=== PATIENT | female | born 1935 | race Caucasian/White ===

== ENCOUNTER 2017-11-01 08:08 | Day surgery (SDC) | payer MEDICARE, MEDICAID ==
[2017-11-01] MEDS ORDERED: LIDOCAINE 1% INJ 50 ML MDV IJ ONE (09:10)
[2017-11-01] MEDS ORDERED: BUPIVACAINE 0.25% 75 MG/30 ML VIAL ONE (09:10)
[2017-11-01] MEDS ORDERED: methylPREDNISolone ACETATE 80 MG/ML VIAL ONE (09:12)
== END 2017-11-01 10:34 | disposition home or self-care (01) ==
LOC: DS 08:08
PROVIDERS: ATTEND Anesthesiology
DX: M47.816 Spondylosis without myelopathy or radiculopathy, lumbar region (principal); M53.3 Sacrococcygeal disorders, not elsewhere classified
CPT/HCPCS: 72020-TC; 82962-TC; J1040; J3490

== ENCOUNTER 2017-11-05 13:55 | Outpatient (CLI) | payer MEDICARE, MEDICAID | END 2017-11-05 23:59 | disposition home or self-care (01) | LOC: WOU 13:55 | PROVIDERS: ATTEND Surgery | PROC: 0JB90ZZ Excision of Buttock Subcutaneous Tissue and Fascia, Open Approach (ICD-10-PCS; principal; 2017-11-05) | DX: T21.05XA Burn of unspecified degree of buttock, initial encounter (principal); X16.XXXA Contact with hot heating appliances, radiators and pipes, initial encounter; Y92.89 Other specified places as the place of occurrence of the external cause; E11.9 Type 2 diabetes mellitus without complications; M48.061 Spinal stenosis, lumbar region without neurogenic claudication; M47.16 Other spondylosis with myelopathy, lumbar region; E66.9 Obesity, unspecified; Z68.34 Body mass index [BMI] 34.0-34.9, adult; Z95.1 Presence of aortocoronary bypass graft | CPT/HCPCS: 11042; A6402 ==

== ENCOUNTER 2017-11-19 14:00 | Outpatient (CLI) | payer MEDICARE, MEDICAID | END 2017-11-19 23:59 | disposition home health service (06) | LOC: WOU 14:00 | PROVIDERS: ATTEND Surgery | DX: T21.35XA Burn of third degree of buttock, initial encounter (principal); X19.XXXA Contact with other heat and hot substances, initial encounter | CPT/HCPCS: 16035; A6402 ×2 ==

== ENCOUNTER 2017-11-30 09:03 | Outpatient (CLI) | payer MEDICARE, MEDICAID | END 2017-11-30 23:59 | disposition home health service (06) | LOC: WOU 09:03 | PROVIDERS: ATTEND Surgery | DX: T21.35XA Burn of third degree of buttock, initial encounter (principal); X19.XXXA Contact with other heat and hot substances, initial encounter; Y93.89 Activity, other specified | CPT/HCPCS: 16035; A6402 ×2; 11042 ==

== ENCOUNTER 2017-12-17 14:00 | Outpatient (CLI) | payer MEDICARE, MEDICAID | END 2017-12-17 23:59 | disposition home health service (06) | LOC: WOU 14:00 | PROVIDERS: ATTEND Surgery | DX: T21.35XA Burn of third degree of buttock, initial encounter (principal); E11.9 Type 2 diabetes mellitus without complications; I10 Essential (primary) hypertension; Z95.1 Presence of aortocoronary bypass graft; M47.816 Spondylosis without myelopathy or radiculopathy, lumbar region; Z74.09 Other reduced mobility | CPT/HCPCS: 16035; A6209; A6402 ==

== ENCOUNTER 2017-12-31 13:48 | Outpatient (CLI) | payer MEDICARE, MEDICAID | END 2017-12-31 23:59 | disposition home or self-care (01) | LOC: WOU 13:48 | PROVIDERS: ATTEND Surgery | DX: T21.35XD Burn of third degree of buttock, subsequent encounter (principal); X19.XXXD Contact with other heat and hot substances, subsequent encounter; E11.9 Type 2 diabetes mellitus without complications; M48.00 Spinal stenosis, site unspecified; I10 Essential (primary) hypertension; E66.9 Obesity, unspecified; Z68.34 Body mass index [BMI] 34.0-34.9, adult; Z71.3 Dietary counseling and surveillance; I25.10 Atherosclerotic heart disease of native coronary artery without angina pectoris; Z95.1 Presence of aortocoronary bypass graft | CPT/HCPCS: A6402; G0463 ==

== ENCOUNTER 2018-05-22 22:45 | Emergency (ER) | payer MEDICARE, MEDICAID ==
[~2018-05-22] VITALS: Ht 157.5 cm; Wt 77.1 kg
--- NOTE | 2018-05-22 22:45 | NUR ---
BB DAUGHTER C/O LETHARGIC AND HYPOTENSIVE WITHIN 24 HOURS. HYPOTENSIVE BUT OTHERWISE VSS NO ACUTE DISTRESS NOTED AT THIS TIME. WILL CONTINUE TO MONITOR FOR ANY CHANGES DURING THE SHIFT.
--- NOTE | 2018-05-22 22:46 | NUR ---
ER MD NG AT BEDSIDE
[2018-05-22] MEDS ORDERED: IV NS 0.9% 1,000 ML BAG IV ONE (23:30)
[2018-05-23 00:05] LABS: BASOPHILS % (AUTO) 0.2 % (0.0-2.0); EOSINOPHILS % (AUTO) 3.2 % (0.0-6.0); HEMATOCRIT 40 % (33-45); HEMOGLOBIN 12.9 g/dL (11.5-14.8); LYMPHOCYTES # (AUTO) 1.7 /CMM (0.8-4.8); LYMPHOCYTES % (AUTO) 22.4 % (20.0-44.0); MEAN CORPUSCULAR HEMOGLOBIN 32 PG (26.0-33.0); MEAN CORPUSCULAR HGB CONC 33 g/dl (31.0-36.0); MEAN CORPUSCULAR VOLUME 97 fL (82-100); MONOCYTES # (AUTO) 0.6 /CMM (0.1-1.30); MONOCYTES % (AUTO) 7.2 % (2.0-12.0); NEUTROPHILS # (AUTO) 5.2 /CMM (1.8-8.9); PLATELET COUNT (AUTO) 212 /CMM (150-450); RDW COEFFICIENT OF VARIATION 14.6 (11.5-15.0); RED BLOOD CELL COUNT(AUTO) 4.08 MIL/uL (4.0-5.2); WHITE BLOOD COUNT (AUTO) 7.7 K/uL (4.3-11.0)
[2018-05-23 00:18] LABS: CALCIUM, SERUM 8.6 mg/dL (8.5-10.1); CARBON DIOXIDE 23 mmol/L (21-32); CHLORIDE 105 mmol/L (98-107); CREATININE 1.8 mg/dL (0.6-1.3); GLUCOSE 217 mg/dL (74-106); POTASSIUM 4.5 mmol/L (3.5-5.1); SODIUM SERUM 137 mmol/L (136-145); UREA NITROGEN, BLOOD 58 mg/dL (7-18)
[2018-05-23 00:22] LABS: INR 0.9 (0.87-1.13)
[2018-05-23 00:23] LABS: ALANINE AMINOTRANSFERASE 10 U/L (12-78); ALBUMIN 3.6 g/dL (3.4-5.0); ALKALINE PHOSPHATASE 123 U/L (46-116); ASPARTATE AMINOTRANSFERASE 19 U/L (15-37); BILIRUBIN,TOTAL 0.2 mg/dL (0.2-1.0)
[2018-05-23 00:26] LABS: TROPONIN I < 0.017 ng/mL (0.00-0.056)
[2018-05-23 00:50] LABS: APPEARANCE,URINE CLEAR (CLEAR); BILIRUBIN,URINE NEGATIVE (NEGATIVE); BLOOD, URINE NEGATIVE Ery/uL (NEGATIVE); COLOR,URINE YELLOW (YELLOW); KETONES,URINE NEGATIVE (NEGATIVE); LEUKOCYTE ESTERASE ,URINE NEGATIVE (NEGATIVE); NITRITE, URINE NEGATIVE (NEGATIVE); PH,URINE 6.5 (5.0-8.0); PROTEIN,URINE NEGATIVE (NEGATIVE); UGLUCOSE 3+ mg/dL (NEGATIVE); UROBILINOGEN,URINE 0.2 EU/dL (0.2)
[2018-05-23 01:01] LABS: RBC,URINE 0-2 /HPF (0-2)
[2018-05-23 01:02] LABS: BACTERIA,URINE Few /HPF (None Seen); SQUAMOUS EPITHELIAL CELL,UR Few /HPF (None Seen)
[2018-05-23 01:39] VITALS: BP 119/61
== END 2018-05-23 01:40 | disposition home or self-care (01) ==
LOC: ER 22:47
DX: R53.1 Weakness (principal); E86.0 Dehydration; N39.0 Urinary tract infection, site not specified; I10 Essential (primary) hypertension; E11.9 Type 2 diabetes mellitus without complications; M48.00 Spinal stenosis, site unspecified; Z98.890 Other specified postprocedural states
CPT/HCPCS: 36415; 80048; 80076; 81001; 82962; 83605; 84484; 85025; 85730; 87040 ×2; 87086; 93005; 99285; A4606; J7030; 81000-TC; Z7610

== ENCOUNTER 2018-06-12 11:12 | Outpatient (CLI) | payer MEDICARE, MEDICAID | END 2018-06-12 23:59 | disposition home or self-care (01) | LOC: WOU 11:12 | PROVIDERS: ATTEND Surgery Vascular Surgery | DX: M79.89 Other specified soft tissue disorders (principal); M71.21 Synovial cyst of popliteal space [Baker], right knee | CPT/HCPCS: 93970-TC; Z7610 ==

== ENCOUNTER 2022-07-19 08:22 | Outpatient (CLI) | payer MEDICARE, OTHER ==
[2022-07-19 08:43] LABS: BASOPHILS % (AUTO) 0.3 % (0.0-2.0); EOSINOPHILS % (AUTO) 3.2 % (0.0-6.0); HEMATOCRIT 38 % (33-45); HEMOGLOBIN 12.4 g/dL (11.5-14.8); LYMPHOCYTES # (AUTO) 1.1 K/uL (0.8-4.8); LYMPHOCYTES % (AUTO) 18.7 % (20.0-44.0); MEAN CORPUSCULAR HGB CONC 33 g/dl (31.0-36.0); MEAN CORPUSCULAR VOLUME 93 fL (82-100); MONOCYTES # (AUTO) 0.5 K/uL (0.1-1.30); NEUTROPHILS # (AUTO) 4.1 K/uL (1.8-8.9); NEUTROPHILS % (AUTO) 68.8 % (43.0-81.0); PLATELET COUNT (AUTO) 186 K/uL (150-450); RED BLOOD CELL COUNT(AUTO) 4.06 MIL/uL (4.0-5.2); WHITE BLOOD COUNT (AUTO) 5.9 K/uL (4.3-11.0)
[2022-07-19 09:03] LABS: ALANINE AMINOTRANSFERASE 11 U/L (12-78); ALBUMIN 3.5 g/dL (3.4-5.0); ALKALINE PHOSPHATASE 127 U/L (46-116); ASPARTATE AMINOTRANSFERASE 19 U/L (15-37); BILIRUBIN,TOTAL 0.8 mg/dL (0.2-1.0); CALCIUM, SERUM 9.2 mg/dL (8.5-10.1); CARBON DIOXIDE 29 mmol/L (21-32); CHLORIDE 108 mmol/L (98-107); CREATININE 1.1 mg/dL (0.6-1.3); GLUCOSE 154 mg/dL (74-106); POTASSIUM 3.3 mmol/L (3.5-5.1); SODIUM SERUM 141 mmol/L (136-145); TOTAL PROTEIN, SERUM 6.7 g/dL (6.4-8.2); UREA NITROGEN, BLOOD 21 mg/dL (7-18)
[2022-07-20] MEDS ORDERED: GABA-532 PO (17:49)
[2022-07-20] MEDS ORDERED: ATOR20TA PO (17:49)
[2022-07-20] MEDS ORDERED: LOSA50TA39 PO (17:49)
[2022-07-20] MEDS ORDERED: MYRBETRIQ PO (17:49)
[2022-07-20] MEDS ORDERED: ASPI-1420 PO (17:49)
[2022-07-20] MEDS ORDERED: SENN-261 PO (17:49)
[2022-07-20] MEDS ORDERED: CIPR500T5 PO (17:49)
[2022-07-20] MEDS ORDERED: AMLO-212 PO (17:49)
[2022-07-20] MEDS ORDERED: MAGN400T26 PO (17:49)
[2022-07-20] MEDS ORDERED: CARB1TAB39 PO (17:49)
[2022-07-20] MEDS ORDERED: SITA50TA PO (17:49)
[2022-07-20] MEDS ORDERED: AMAN100C16 PO (18:35)
[2022-07-20] MEDS ORDERED: CALC-15 PO (18:35)
[2022-07-20] MEDS ORDERED: PRAM0.5T11 PO (18:35)
[2022-07-24] MEDS ORDERED: CARV6.252 PO (11:39)
[2022-07-24] MEDS ORDERED: FLUC100T8 PO (11:39)
[2022-07-24] MEDS ORDERED: PIPE3.379 IV (11:39)
[2022-07-24] MEDS ORDERED: Quetiapine Fumarate PO (11:39)
== END 2022-07-19 23:59 | disposition home or self-care (01) ==
LOC: LAB 08:22
PROVIDERS: ATTEND Family Medicine
DX: R44.3 Hallucinations, unspecified (principal)
CPT/HCPCS: 36415; 80053-TC; 85025-TC

== ENCOUNTER 2022-07-20 16:39 | Inpatient (IN) | payer MEDICARE, OTHER ==
[~2022-07-20] VITALS: Ht 157.5 cm; Wt 63.5 kg
[2022-07-20] MEDS ORDERED: CIPROFLOXACIN IV RTU 400 MG in PREMIX 1 EA IV SCH (17:30)
[2022-07-20] MEDS ORDERED: IV NS 0.9% 1,000 ML BAG IV ONE (17:30)
[2022-07-20] MEDS ORDERED: AMLO-212 PO (17:49)
[2022-07-20] MEDS ORDERED: SITA50TA PO (17:49)
[2022-07-20] MEDS ORDERED: ATOR20TA PO (17:49)
[2022-07-20] MEDS ORDERED: ASPI-1420 PO (17:49)
[2022-07-20] MEDS ORDERED: CARB1TAB39 PO (17:49)
[2022-07-20] MEDS ORDERED: GABA-532 PO (17:49)
[2022-07-20] MEDS ORDERED: MAGN400T26 PO (17:49)
[2022-07-20] MEDS ORDERED: CIPR500T5 PO (17:49)
[2022-07-20] MEDS ORDERED: LOSA50TA39 PO (17:49)
[2022-07-20] MEDS ORDERED: MYRBETRIQ PO (17:49)
[2022-07-20] MEDS ORDERED: SENN-261 PO (17:49)
--- NOTE | 2022-07-20 18:08 | NUR ---
PT TAKEN TO RADIOLOGY FOR CT
[2022-07-20 18:18] LABS: BILIRUBIN,URINE NEGATIVE (NEGATIVE); COLOR,URINE YELLOW (YELLOW); LEUKOCYTE ESTERASE ,URINE SMALL (NEGATIVE); NITRITE, URINE NEGATIVE (NEGATIVE); PROTEIN,URINE TRACE mg/dl (NEGATIVE); UGLUCOSE NEGATIVE (NEGATIVE); UROBILINOGEN,URINE 0.2 EU/dL (0.2)
[2022-07-20 18:29] LABS: BACTERIA,URINE 1+ /HPF (None Seen); RBC,URINE 0-2 /HPF (0-2); SQUAMOUS EPITHELIAL CELL,UR Few /HPF (None Seen); WBC,URINE TOO NUMEROUS TO COUN /HPF (0-3); YEAST,URINE Hyphal filaments /HPF (None Seen)
[2022-07-20] MEDS ORDERED: PRAM0.5T11 PO (18:35)
[2022-07-20] MEDS ORDERED: CALC-15 PO (18:35)
[2022-07-20] MEDS ORDERED: AMAN100C16 PO (18:35)
--- NOTE | 2022-07-20 19:09 | NUR ---
BIBA Daughter from Home "GLF couple days ago. Today seems confused". HAS HAD MULTIPLE GLFS OVER LAST FEW DAYS PER DAUGHTER WITH BRUISING TO R EYE. PER DAUGHTER HAS BEEN ON MULTIPLE ABX FOR UTI WITHOUT IMPROVEMENT. ON MONITOR AND V/S WNL. DAUGHTER AT BEDSIDE.
--- NOTE | 2022-07-20 19:10 | NUR ---
COVID SWAB DONE AND SENT
--- NOTE | 2022-07-20 19:15 | NUR ---
20G IV ESTABLISHED AT [facility]. SALINE LOCKED.
--- NOTE | 2022-07-20 19:15 | NUR ---
Shola gonzalez in ED - 07/20/22 at 2143 by KRYSTENBBMARIE 30G IV ESTABLISHED AT [facility]. SALINE LOCKED.
[2022-07-20] MEDS ORDERED: CIPROFLOXACIN IV RTU 200 ML IV ONE (19:17)
[2022-07-20 20:07] LABS: CALCIUM, SERUM 9.5 mg/dL (8.5-10.1); CREATININE 1.1 mg/dL (0.6-1.3); POTASSIUM 3.3 mmol/L (3.5-5.1)
[2022-07-20 20:27] LABS: ALBUMIN 4.1 g/dL (3.4-5.0); BILIRUBIN,DIRECT 0.3 mg/dL (0.0-0.2); TOTAL PROTEIN, SERUM 7.7 g/dL (6.4-8.2)
[2022-07-20 20:39] LABS: BASOPHILS % (AUTO) 0.3 % (0.0-2.0); EOSINOPHILS % (AUTO) 0.9 % (0.0-6.0); HEMATOCRIT 40 % (33-45); HEMOGLOBIN 13.4 g/dL (11.5-14.8); LYMPHOCYTES # (AUTO) 0.7 K/uL (0.8-4.8); LYMPHOCYTES % (AUTO) 8.8 % (20.0-44.0); MEAN CORPUSCULAR HGB CONC 33 g/dl (31.0-36.0); MEAN CORPUSCULAR VOLUME 93 fL (82-100); MONOCYTES # (AUTO) 0.6 K/uL (0.1-1.30); MONOCYTES % (AUTO) 6.7 % (2.0-12.0); NEUTROPHILS # (AUTO) 6.9 K/uL (1.8-8.9); NEUTROPHILS % (AUTO) 83.3 % (43.0-81.0); PLATELET COUNT (AUTO) 213 K/uL (150-450); RED BLOOD CELL COUNT(AUTO) 4.33 MIL/uL (4.0-5.2); WHITE BLOOD COUNT (AUTO) 8.3 K/uL (4.3-11.0)
[2022-07-20] MEDS ORDERED: Z GUARD REMEDY 4 OZ OINT TP PRN (21:00)
[2022-07-20] MEDS ORDERED: ONDANSETRON HCL/PF 4 MG/2 ML VIAL IVP PRN (21:00)
[2022-07-20] MEDS ORDERED: LOSARTAN POTASSIUM 50 MG TABLET PO PRN (21:00)
[2022-07-20] MEDS ORDERED: MAG HYDROX/AL HYDROX/SIMETH 30 ML UDC PO PRN (21:00)
--- NOTE | 2022-07-20 21:39 | NUR ---
BED 310-1
--- NOTE | 2022-07-20 22:08 | NUR ---
REPORT GIVEN TO ADRIAN
--- NOTE | 2022-07-20 22:24 | NUR ---
PT TRANSPORTED TO ROOM 306-2 VIA [facility] IN STABLE CONDITION
[2022-07-20 22:25] VITALS: BP 149/95
--- NOTE | 2022-07-20 22:30 | NUR ---
MS OCCUPATIONAL THERAPY SUPERVISOR NOTES RECEIVED PATIENT FROM ER VIA [facility] AT 2220 UNDER THE CARE OF SILVESTRE MENDEZ NP WITH DX OF UTI, FAILED OUTPATIENT TX. ACCOMPANIED BY DAUGHTER. PATIENT IS A/O X1 AND CONFUSED, HER BASELINE IS A/O X4. GERMAN SPEAKING. BREATHING EVEN AND NON-LABORED ON ROOM AIR. NOT IN APPARENT DISTRESS. NO PAIN OR DISCOMFORT NOTED. GENERALIZED TREMORS D/T PARKINSON'S. HAS RIGHT ANTECUBITAL IV ACCESS #20G AND SALINE LOCKED. NO S/S OF INFILTRATION NOTED. HAS INDWELLING STAFFORD CATHETER DRAINING YELLOW CLEAR URINE TO BAG BY GRAVITY. PER DAUGHTER, PATIENT WAS AMBULATORY WITH WALKER. MULTIPLE BRUISES NOTED D/T FALLS. ALL BELONGINGS ACCOUNTED FOR. ORIENTED DAUGHTER TO ROOM AND UNIT. SAFETY MEASURES IN PLACE: BED LOW AND LOCKED, SIDE RAILS UP X2, CALL LIGHT WITHIN REACH. INITIATED POC.
[2022-07-20] MEDS: ATORVASTATIN 10 MG TABLET PO SCH (22:52)
[2022-07-20] MEDS: ZOLPIDEM TARTRATE 5 MG TABLET PO PRN (22:57)
[2022-07-20] MEDS: IV NS 0.9% 1,000 ML IV PRN (23:00)
--- NOTE | 2022-07-20 23:00 | NUR ---
MS RN NOTES DAUGHTER REQUESTED TO GIVE PATIENT AMBIEN SINCE SHE HAS NOT SLEPT FOR 3 NIGHTS. ADMINISTERED PRN AMBIEN. TOLERATED WELL. WILL CONTINUE TO MONITOR.
[2022-07-20] MEDS ORDERED: PIPERACILLIN /TAZOBACTAM 2.25 G VIAL IV ONE (23:06)
[2022-07-20] MEDS: ZOSYN IVPB 2.25 G in IV D5W 50ml IV SCH (23:21)
[2022-07-20] MEDS ORDERED: POTASSIUM CHLORIDE 10 MEQ TABLET.SA PO ONE (23:30)
[2022-07-21] MEDS ORDERED: PIPERACILLIN /TAZOBACTAM 2.25 G VIAL IV ONE (05:13)
[2022-07-21] MEDS: ZOSYN IVPB 2.25 G in IV D5W 50ml IV SCH (05:28)
[2022-07-21 05:57] LABS: BASOPHILS % (AUTO) 0.2 % (0.0-2.0); EOSINOPHILS % (AUTO) 3.2 % (0.0-6.0); HEMATOCRIT 34 % (33-45); HEMOGLOBIN 11.5 g/dL (11.5-14.8); LYMPHOCYTES # (AUTO) 1.4 K/uL (0.8-4.8); LYMPHOCYTES % (AUTO) 21.2 % (20.0-44.0); MEAN CORPUSCULAR HGB CONC 34 g/dl (31.0-36.0); MEAN CORPUSCULAR VOLUME 93 fL (82-100); MONOCYTES # (AUTO) 0.7 K/uL (0.1-1.30); MONOCYTES % (AUTO) 9.9 % (2.0-12.0); NEUTROPHILS # (AUTO) 4.3 K/uL (1.8-8.9); NEUTROPHILS % (AUTO) 65.5 % (43.0-81.0); PLATELET COUNT (AUTO) 179 K/uL (150-450); WHITE BLOOD COUNT (AUTO) 6.6 K/uL (4.3-11.0)
--- NOTE | 2022-07-21 06:38 | NUR ---
MS RN CLOSING NOTES PATIENT LYING IN BED ASLEEP, EASY TO AROUSE. A/O X1, STILL CONFUSED. NO SOB OR NOTED, TOLERATING ROOM AIR WELL. NO ACUTE DISTRESS NOTED. NO S/S OF PAIN OR DISCOMFORT. AFEBRILE. HAS RIGHT ANTECUBITAL IV ACCESS #20G WITH NS RUNNING AT 90 ML/HR. INTACT, PATENT AND FLUSHING. YELLOW CLEAR URINE OUTPUT OF 350 ML. SKIN CARE RENDERED. ALL DUE MEDS GIVEN AND NEEDS ATTENDED. SAFETY MEASURES MAINTAINED. WILL ENDORSE TO NEXT SHIFT FOR MARTY.
--- NOTE | 2022-07-21 07:32 | NUR ---
MS RN OPENING NOTES RECEIVED PATIENT IN BED ASLEEP, EASY TO AROUSE. A/O X1, ETHIOPIAN SPEAKING. STILL CONFUSED. ON ROOM AIR, NO SIGNS OF SOB OR RESPIRATORY DISTRESS NOTED. NO S/S OF PAIN OR DISCOMFORT. HAS IV ACCESS RAC 20G WITH NS RUNNING AT 90 ML/HR. INTACT, PATENT AND FLUSHING. HAS STAFFORD CATH WITH YELLOW CLEAR URINE OUTPUT. SAFETY MEASURES MAINTAINED: CALL LIGHT WITHIN REACH, SIDE RAILS UP X3, BED LOCKED IN LOWEST POSITION. WILL CONTINUE TO MONITOR.
[2022-07-21 08:10] LABS: CALCIUM, SERUM 8.4 mg/dL (8.5-10.1); CREATININE 0.8 mg/dL (0.6-1.3); MAGNESIUM 1.9 mg/dL (1.8-2.4); PHOSPHORUS 2.7 mg/dL (2.5-4.9); POTASSIUM 3.3 mmol/L (3.5-5.1)
[2022-07-21] MEDS: MAGNESIUM OXIDE 400 MG TABLET PO SCH (08:18)
[2022-07-21] MEDS: AMANTADINE HCL 100 MG CAPSULE PO SCH (08:18)
[2022-07-21] MEDS: CALCIUM CARB 600MG /VIT D 1 EACH TABLET PO SCH (08:18)
[2022-07-21] MEDS: ASPIRIN EC 81 MG TABLET.DR PO SCH (08:18)
[2022-07-21] MEDS: LINAGLIPTIN 5 MG TABLET PO SCH (08:18)
[2022-07-21] MEDS: SENNOSIDES 8.6 MG TABLET PO SCH (08:18)
[2022-07-21] MEDS: GABAPENTIN 100 MG CAPSULE PO SCH ×2 (08:18→16:30)
--- NOTE | 2022-07-21 08:56 | NUR ---
WOUND CARE CONSULT: PT PRESENTS WITH MULTIPLE AREAS OF SKIN DISCOLORATION INCLUDING FACE AND EXTREMITIES WELL DRY ABRASION TO LEFT ELBOW, PRESENT ON ADMISSION. RECOMMENDATIONS MADE FOR SKIN PROTECTION. DISCUSSED WITH NURSING STAFF. PT NOTED TO HAVE FRAGILE SKIN. Ashley Ma IN AGREEMENT WITH PLAN OF CARE. STAFFORD CATH NOTED.
[2022-07-21] MEDS ORDERED: Medication Not On Formulary EA ([Myrbetriq] 50 MG) PO SCH (09:00)
[2022-07-21] MEDS ORDERED: AMLODIPINE BESYLATE 5 MG TABLET PO SCH (09:00)
[2022-07-21] MEDS ORDERED: PRAMIPEXOLE DI HCL PO SCH (09:00)
[2022-07-21 09:38] LABS: CHOLESTEROL 114 mg/dL (<200); HDL CHOLESTEROL 71 mg/dL (40-60); LDL 34 mg/dL (0-99); TRIGLYCERIDES 61 mg/dL (30-150)
[2022-07-21] MEDS: CARBIDOPA/LEVA CR 25/100MG 1 TAB.SA PO SCH ×3 (09:55→16:30)
[2022-07-21] MEDS: POTASSIUM CHLORIDE 20 MEQ TAB.PRT.SR PO SCH ×2 (10:37→12:13)
[2022-07-21] MEDS: PIPERACILLIN /TAZOBACTAM 3.375 G in IV D5W 50 ML IV SCH ×2 (11:03→17:26)
[2022-07-21] MEDS: FLUCONAZOLE (100 MG) 100 MG TABLET PO SCH (12:13)
[2022-07-21] MEDS: IV NS 0.9% 1,000 ML IV PRN (13:21)
[2022-07-21] MEDS: ACETAMINOPHEN 325 MG TABLET PO PRN (14:46)
--- NOTE | 2022-07-21 14:49 | NUR ---
RN NOTES PT C/O MILD CHEST PAIN/DISCOMFORTS AFTER PHYSICAL THERAPY, PRN TYLENOL 650 MG PO ADMINISTERED AT 1446. WILL CONTINUE TO MONITOR PT.
[2022-07-21] MEDS: PRAMIPEXOLE DI-HCL 0.25 MG TABLET PO SCH (16:31)
--- NOTE | 2022-07-21 16:49 | NUR ---
RN NOTES PT'S DAUGHTER AT BEDSIDE AND VERBALIZED THAT PT HAS CHRONIC CONSTIPATION AND HASN'T DONE BOWEL MOVEMENT FOR A WEEK NOW. DR WEATHERS MADE AWARE WITH ORDER TO ADMINISTER BISACODYL 10MG SUPPOSITORY PRN.
[2022-07-21] MEDS ORDERED: BISACODYL SUPP (10 MG) 10 MG/SUPP.RECT SUPP.RECT RC PRN (17:00)
--- NOTE | 2022-07-21 18:23 | NUR ---
RN NOTES PT HAD ONE BOWEL MOVEMENT X1 AFTER GIVING BISACODYL 10MG SUPPOSITORY.
--- NOTE | 2022-07-21 18:37 | NUR ---
MS RN CLOSING NOTES PATIENT IN BED AWAKE AND WATCHING TV AT THIS TIME. HOB ELEVATED. DAUGHTER AT BEDSIDE. A/O X 2-3, NIGERIAN SPEAKING AND UNDERSTANDS MINIMAL LAO. ON ROOM AIR, TOLERATING WELL, NO SOB OR ACUTE RESPIRATORY DISTRESS NOTED. IV ACCESS ON LFA #22G INTACT WITH IVF OF NS RUNNING AT 90 ML/HR, NO /S OF INFILTRATION AT SITE NOTED. STAFFORD CATH IN PLACE AND ACTIVELY DRAINING SLIGHTLY CLOUDY YELLOW CLEAR URINE OUTPUT, STAFFORD CARE DONE. PT TURNED AND REPOSITIONED Q2HRS AND PRN. ALL NEEDS AND CARE PROVIDED WELL. SAFETY MEASURES MAINTAINED: CALL LIGHT WITHIN REACH, BED ALARM ON, SIDE RAILS UP X3, BED LOCKED IN LOWEST POSITION. WILL ENDORSE MARTY TO WORK ORDER DETAILER NURSE.
--- NOTE | 2022-07-21 19:30 | NUR ---
MS RN OPENING NOTES RECEIVED PATIENT LYING IN BED AWAKE. A/O X 2-3, KUWAITI SPEAKING AND UNDERSTANDS MINIMAL PERSIAN. BREATHING EVEN AND NON-LABORED ON ROOM AIR. NOT IN APPARENT DISTRESS. DENIES PAIN AT THIS TIME. HAS LEFT FOREARM IV ACCESS #22G WITH NS RUNNING AT 90 ML/HR. NO S/S OF INFILTRATION NOTED. HAS INDWELLING STAFFORD CATHETER DRAINING CLEAR YELLOW URINE TO BAG BY GRAVITY. SAFETY PRECAUTIONS IN PLACE: BED LOW AND LOCKED, SIDE RAILS UP X2, CALL LIGHT WITHIN REACH. WILL CONTINUE POC.
[2022-07-21 20:00] VITALS: BP 111/54
[2022-07-21] MEDS: MAGNESIUM HYDROXIDE 30 ML UDC PO PRN (21:44)
[2022-07-21] MEDS: ATORVASTATIN 10 MG TABLET PO SCH (21:44)
--- NOTE | 2022-07-21 21:50 | NUR ---
MS RN NOTES DAUGHTER REQUESTED TO GIVE PRN MOM TO PATIENT SINCE SHE HAS CHRONIC CONSTIPATION.
[2022-07-22] MEDS: PIPERACILLIN /TAZOBACTAM 3.375 G in IV D5W 50 ML IV SCH ×2 (00:28→06:03)
[2022-07-22] MEDS: IV NS 0.9% 1,000 ML IV PRN (02:26)
[2022-07-22 06:34] LABS: BASOPHILS % (AUTO) 0.2 % (0.0-2.0); EOSINOPHILS % (AUTO) 4.9 % (0.0-6.0); HEMATOCRIT 39 % (33-45); LYMPHOCYTES # (AUTO) 1.6 K/uL (0.8-4.8); LYMPHOCYTES % (AUTO) 21.8 % (20.0-44.0); MEAN CORPUSCULAR HGB CONC 33 g/dl (31.0-36.0); MEAN CORPUSCULAR VOLUME 93 fL (82-100); MONOCYTES # (AUTO) 0.6 K/uL (0.1-1.30); MONOCYTES % (AUTO) 8.2 % (2.0-12.0); NEUTROPHILS # (AUTO) 4.6 K/uL (1.8-8.9); NEUTROPHILS % (AUTO) 64.9 % (43.0-81.0); PLATELET COUNT (AUTO) 189 K/uL (150-450); WHITE BLOOD COUNT (AUTO) 7.2 K/uL (4.3-11.0)
[2022-07-22 06:46] LABS: CALCIUM, SERUM 8.7 mg/dL (8.5-10.1); CARBON DIOXIDE 24 mmol/L (21-32); CHLORIDE 108 mmol/L (98-107); CREATININE 0.8 mg/dL (0.6-1.3); GLUCOSE 94 mg/dL (74-106); MAGNESIUM 1.6 mg/dL (1.8-2.4); PHOSPHORUS 2.6 mg/dL (2.5-4.9); POTASSIUM 3.6 mmol/L (3.5-5.1); SODIUM SERUM 142 mmol/L (136-145); UREA NITROGEN, BLOOD 9 mg/dL (7-18)
[2022-07-22 07:00] VITALS: BP 130/54
--- NOTE | 2022-07-22 07:01 | NUR ---
MS RN CLOSING NOTES PATIENT LYING IN BED SLEEPING INTERMITTENTLY, EASY TO AROUSE. A/O X 2-3, ABLE TO VERBALIZE NEEDS. NO SOB OR NOTED, TOLERATING ROOM AIR WELL. NO ACUTE DISTRESS NOTED. NO PAIN OR DISCOMFORT NOTED. AFEBRILE. HAS LEFT FOREARM IV ACCESS #22G WITH NS RUNNING AT 90 ML/HR. INTACT, PATENT AND FLUSHING. ALL DUE MEDS GIVEN AND NEEDS ATTENDED. SAFETY PRECAUTIONS MAINTAINED. WILL ENDORSE TO NEXT SHIFT FOR MARTY.
--- NOTE | 2022-07-22 07:25 | NUR ---
ms rn received on bed, awake,alert,oriented x3 not in any form of distress, respirations even and unlabored,no sob noted,s/p fall right eye bruise noted, denies pain at this time, will monitor patient.
[2022-07-22] MEDS: LINAGLIPTIN 5 MG TABLET PO SCH (09:00)
--- NOTE | 2022-07-22 09:50 | NUR ---
ms arana breakfast served,due meds given,tolerated well.
[2022-07-22] MEDS: SENNOSIDES 8.6 MG TABLET PO SCH (09:51)
[2022-07-22] MEDS: FLUCONAZOLE (100 MG) 100 MG TABLET PO SCH (09:51)
[2022-07-22] MEDS: CALCIUM CARB 600MG /VIT D 1 EACH TABLET PO SCH (09:51)
[2022-07-22] MEDS: ASPIRIN EC 81 MG TABLET.DR PO SCH (09:51)
[2022-07-22] MEDS: MAGNESIUM OXIDE 400 MG TABLET PO SCH (09:51)
[2022-07-22] MEDS: GABAPENTIN 100 MG CAPSULE PO SCH ×2 (09:51→16:56)
[2022-07-22] MEDS: PRAMIPEXOLE DI-HCL 0.25 MG TABLET PO SCH ×2 (09:52→16:56)
[2022-07-22] MEDS: CARBIDOPA/LEVA CR 25/100MG 1 TAB.SA PO SCH ×3 (09:53→16:55)
[2022-07-22] MEDS: AMANTADINE HCL 100 MG CAPSULE PO SCH (09:55)
[2022-07-22] MEDS: CARVEDILOL 6.25 MG TABLET PO SCH ×2 (10:00→21:00)
[2022-07-22] MEDS: LOSARTAN POTASSIUM 50 MG TABLET PO SCH ×2 (10:00→21:00)
[2022-07-22] MEDS: PIPERACILLIN /TAZOBACTAM 3.375 G in IV D5W 100 ML IV SCH ×2 (12:57→21:20)
[2022-07-22] MEDS: Magnesium 1GM/D5W 100ML PREMIX 100 ML IV SCH ×2 (12:57→14:12)
[2022-07-22] MEDS: ACETAMINOPHEN 325 MG TABLET PO PRN (13:10)
[2022-07-22 20:00] VITALS: BP 103/43
[2022-07-22] MEDS: ATORVASTATIN 10 MG TABLET PO SCH (21:29)
[2022-07-22] MEDS: ZOLPIDEM TARTRATE 5 MG TABLET PO PRN (21:30)
--- NOTE | 2022-07-22 21:33 | NUR ---
UNABLE TO SLEEP Patient in bed, inability to sleep. Made comfortable in bed, provided warm blanket. Given Ambien, will monitor hours of sleep. Fall precaution maintained.
[2022-07-22] MEDS: MAGNESIUM HYDROXIDE 30 ML UDC PO PRN (22:20)
--- NOTE | 2022-07-22 22:24 | NUR ---
FAMILY CONCERN Records showed patient had BM today, per Sosseh/daughter- patient taking senokot 4 tabs. at home. Given MOM per daughter request.
[2022-07-23] MEDS: PIPERACILLIN /TAZOBACTAM 3.375 G in IV D5W 100 ML IV SCH ×3 (05:45→21:19)
--- NOTE | 2022-07-23 06:14 | NUR ---
END OF SHIFT REPORT Patient in bed, Alert Oriented x1 to self only. Patient confused, trying to get out from bed unassisted, frequent Orientation. Stable on RA, Oxygen sat 93%. Inserted new IV line in Right wrist, on IV abx. Afebrile throughout shift. 5 Hours sleep with Ambien. Santiago cath draining, good urine output 800 ml. No BM during the shift. Fall precaution maintained. Will endorse to oncoming RN.
[2022-07-23 07:00] VITALS: BP 150/63
--- NOTE | 2022-07-23 07:37 | NUR ---
MS RN OPENING NOTES RECEIVED PATIENT AWAKE IN BED. A/O X 1, CONFUSED. REORIENT THE PATIENT .ABLE TO VERBALIZE NEEDS IN FILIPINO LANGUAGE. NO SOB NOTED, TOLERATING ROOM AIR WELL. NO ACUTE DISTRESS NOTED. NO PAIN OR DISCOMFORT NOTED. AFEBRILE. NOTED WITH BRUISES ON THE RIGHT EYE AND RIGHT FOREHEAD, BOTH POSTERIOR HANDS. IV ACCESS RIGHT WRIST G # 24 INTACT, PATENT AND FLUSHING WELL. ALL SAFETY PRECAUTIONS IN PLACE. BED ALARM ON. BED LOCKED IN THE LOWEST POSITION. CALL LIGHT AND TABLE IN EASY REACH. SIDE RAILS UP TIMES 2. WILL CONTINUE TO MONITOR.
[2022-07-23] MEDS: SENNOSIDES 8.6 MG TABLET PO SCH (08:24)
[2022-07-23] MEDS: LINAGLIPTIN 5 MG TABLET PO SCH (08:24)
[2022-07-23] MEDS: AMANTADINE HCL 100 MG CAPSULE PO SCH (08:25)
[2022-07-23] MEDS: GABAPENTIN 100 MG CAPSULE PO SCH ×2 (08:25→16:02)
[2022-07-23] MEDS: MAGNESIUM OXIDE 400 MG TABLET PO SCH (08:25)
[2022-07-23] MEDS: ASPIRIN EC 81 MG TABLET.DR PO SCH (08:25)
[2022-07-23] MEDS: FLUCONAZOLE (100 MG) 100 MG TABLET PO SCH (08:26)
[2022-07-23] MEDS: CARBIDOPA/LEVA CR 25/100MG 1 TAB.SA PO SCH ×3 (08:26→16:32)
[2022-07-23] MEDS: CALCIUM CARB 600MG /VIT D 1 EACH TABLET PO SCH (08:27)
[2022-07-23] MEDS: LOSARTAN POTASSIUM 50 MG TABLET PO SCH (08:27)
[2022-07-23] MEDS: CARVEDILOL 6.25 MG TABLET PO SCH ×2 (08:28→21:19)
[2022-07-23] MEDS: PRAMIPEXOLE DI-HCL 0.25 MG TABLET PO SCH ×2 (08:30→16:32)
[2022-07-23] MEDS: ACETAMINOPHEN 325 MG TABLET PO PRN ×2 (09:52→19:57)
[2022-07-23] MEDS: VALSARTAN 80 MG TABLET PO SCH (10:30)
--- NOTE | 2022-07-23 11:47 | NUR ---
RN NOTES HELD DIOVAN 160 MG FOR MZ=226/50, P=74 PER MEDICATION PARAMETERS.
--- NOTE | 2022-07-23 12:23 | NUR ---
RN NOTES DC THE ORDER OF AMBIEN [address] INDIA WEATHERS ORDER AT 1220 PM.
[2022-07-23] MEDS ORDERED: POLYETHYLENE GLYCOL 3350 17 GM POWD.PACK PO PRN (12:30)
[2022-07-23 16:00] VITALS: BP 109/47
[2022-07-23] MEDS ORDERED: QUETIAPINE FUMARATE 25 MG TABLET PO PRN (17:30)
[2022-07-23 20:00] VITALS: BP 128/52
[2022-07-23] MEDS: ATORVASTATIN 10 MG TABLET PO SCH (21:18)
[2022-07-24] MEDS: PIPERACILLIN /TAZOBACTAM 3.375 G in IV D5W 100 ML IV SCH ×2 (04:21→12:14)
--- NOTE | 2022-07-24 06:53 | NUR ---
MS RN CLOSING NOTES PATIENT AWAKE IN BED. A/O X 1, CONFUSED. REORIENT THE PATIENT .ABLE TO VERBALIZE NEEDS IN MOHAWK LANGUAGE. NO SOB NOTED, TOLERATING ROOM AIR WELL. NO ACUTE DISTRESS NOTED. NO PAIN OR DISCOMFORT NOTED. AFEBRILE. NOTED WITH BRUISES ON THE RIGHT EYE AND RIGHT FOREHEAD, BOTH POSTERIOR HANDS. IV ACCESS RIGHT WRIST G # 24 INTACT, PATENT AND FLUSHING WELL. ALL SAFETY PRECAUTIONS IN PLACE. ALL DUE MEDS GIVEN ORDERED.BED ALARM ON. BED LOCKED IN THE LOWEST POSITION. CALL LIGHT AND TABLE IN EASY REACH. SIDE RAILS UP TIMES 2. FALL AND ASPIRATION PRECAUTION.DAUGHTER VISITED THE PATIENT. WILL ENDORSE FOR MARTY.
--- NOTE | 2022-07-24 07:29 | NUR ---
MS RN OPENING NOTES RECEIVED PATIENT ASLEEP IN BED, EASILY AROUSABLE TO TOUCH AND NAME. HOB ELEVATED. A/O X 2, CONFUSED AND YEMENI SPEAKING, DENIES PAIN OR ANY DISCOMFORTS AT THIS TIME. ON ROOM AIR, TOLERATING WELL, NO SOB OR ACUTE RESPIRATORY DISTRESS NOTED. IV ACCESS ON RIGHT WRIST #24G INTACT WITH IV ABX ZOSYN RUNNING AT 25 ML/HR, NO /S OF INFILTRATION AT SITE NOTED. STAFFORD CATH IN PLACE AND ACTIVELY DRAINING CLEAR YELLOW URINE OUTPUT. SAFETY MEASURES MAINTAINED: CALL LIGHT WITHIN REACH, BED ALARM ON, SIDE RAILS UP X3, BED LOCKED IN LOWEST POSITION. WILL CONTINUE TO MONITOR PT.
[2022-07-24 08:00] VITALS: BP 105/49
[2022-07-24] MEDS: ASPIRIN EC 81 MG TABLET.DR PO SCH (08:57)
[2022-07-24] MEDS: GABAPENTIN 100 MG CAPSULE PO SCH ×2 (08:57→16:55)
[2022-07-24] MEDS: FLUCONAZOLE (100 MG) 100 MG TABLET PO SCH (08:58)
[2022-07-24] MEDS: SENNOSIDES 8.6 MG TABLET PO SCH (08:58)
[2022-07-24] MEDS: MAGNESIUM OXIDE 400 MG TABLET PO SCH (08:59)
[2022-07-24] MEDS: LINAGLIPTIN 5 MG TABLET PO SCH (08:59)
[2022-07-24] MEDS: CALCIUM CARB 600MG /VIT D 1 EACH TABLET PO SCH (08:59)
[2022-07-24] MEDS: CARBIDOPA/LEVA CR 25/100MG 1 TAB.SA PO SCH ×3 (08:59→16:55)
[2022-07-24] MEDS: AMANTADINE HCL 100 MG CAPSULE PO SCH (08:59)
[2022-07-24] MEDS: CARVEDILOL 6.25 MG TABLET PO SCH (09:00)
[2022-07-24] MEDS: PRAMIPEXOLE DI-HCL 0.25 MG TABLET PO SCH ×2 (09:00→16:55)
[2022-07-24] MEDS: VALSARTAN 80 MG TABLET PO SCH (09:00)
[2022-07-24] MEDS ORDERED: PIPE3.379 IV (11:39)
[2022-07-24] MEDS ORDERED: FLUC100T8 PO (11:39)
[2022-07-24] MEDS ORDERED: CARV6.252 PO (11:39)
[2022-07-24] MEDS ORDERED: Quetiapine Fumarate PO (11:39)
--- NOTE | 2022-07-24 15:08 | NUR ---
SW received consult for falls at home & multiple bruises. The pt. is an 87 year old female who was BIBRA from home due to recent fall who presented from home second to worsening altered mental status x3 days . The pt.'s daughter was bale to give MD collateral information as pt. is a poor historian. Per EMR, the pt. has Hx. 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 SW met with pt. at bedside and the pt. is alert & oriented x 2. The pt'.s caregiver is at bedside. The pt. is mostly Togolese and frisian speaking per daughter. GEORGE called and spoke with the pt.'s daughter, Tony Burciaga [phone] who stated that the pt. lives at home with her. Per Tony, the pt. has had recurring UTI with antibiotic Tx. and due to this pt. had worsening mental status and falls at home. The pt. had a right eye bruise due to fall. Tony stated that she took pt. to different hospital after the first fall and the hospital cleared the pt. and sent her home where she had another fall. No ASP report needed at this time. Daughter, Tony is providing and seeking appropriate level of care for pt. Current DC plan is for pt. to be DC [facility]. Family is agreeable. GEORGE provided senior resources for additional support as needed. ABUSE PREVENTION: ELDER ABUSE HOTLINE (30/04) ADULT PROTECTIVE SERVICES HOTLINE LONG-TERM CARE [facility] Region AREA ON AGING (HOTLINE) ADULT DAY HEALTH CARE CARE CENTERS: Private pay or Medi-francisco funded adult day care [place] [facility] , [facility] , [facility] , [facility] Adult Day Health Care , [facility] Adult Day Health Care , [facility] Adult Daycare Center , [place] [facility] , [facility] [place] Center , Holman ALZHEIMERS DISEASE/DEMENTIA: Alzheimers Association Helpline [facility] Chapter www.alz.org/[facility] Department of Aging www.lacity.org Family Caregiver [place] www.caregiver.org [place] Caregiver Resources Center/Family Support www.[facility].org CANCER RESOURCES: [place] Cancer Society www.cancer.org Cancer Support Community www.CancerSupportVvsb.org: CancerCare www.cancercare.org [facility] Cancer Support [place] www.[facility].org UNC HEALTH HEALTH ASSOCIATIONS: AARP www.aarp.org ALS Association (ask for Roseann) www.als.org [place] Diabetes Association www.diabetes.org [place] Heart Association www.heart.org [place] Lung Association www.lungusa.org [place] Parkinson Disease Association www.apdaparkinson.org Sierra [place]an [place] , www.redcross.org Arthritis Foundation www.arthritis.org Crohns & Colitis Foundation of Sierra [place]an www.ccfa.org/chapters/verónica National Multiple Sclerosis Society www.nationalmssociety.org Myasthenia Gravis Foundation www.myasthenia-ca.org National Stroke Association www.stroke.org CONSERVATORSHIP & GUARDIANSHIP: AARP Eliane Prater Legal Services Center for Health Care Rights Eldercare Information and Referral Roving Department End Finder Foundation [facility]: [facility] Bar Referral Service [facility] Legal Services Office of the Public Guardian [place] EYESIGHT DISORDER RESOURCES: [place] Macular Degeneration Foundation [facility] www.[facility].org GRIEF AND BEREAVEMENT RESOURCES: The Gathering Place , [facility] THE HOPE Connection , [facility] Bereavement Center , Munday HEARING DISORDER RESOURCES: [place] Telephone Access Program Deaf and Disabled Telecommunications Program www.ddtp.[facility].ca.gov HearRx Hearing Centers ([place]) Better Hearing Systems , Munday GLAD ([facility] Agency on Deafness) V/ TTY; English Division Chair , [facility] Hearing [facility] -low income hearing aid assistance www.[facility]ca [facility] hospitalfoundation.org Streator Hearing Care , Bianca HELP AT HOME CAREGIVER SUPPORT: In Home Support Services (Must have Medi-Francisco to be eligible) *Ask for a list of agencies that provide services to assist with care in the home. Local Senior Centers also have listings of care providers. HOME SAFETY MODIFICATIONS AND EQUIPMENT: Senior centers have additional referrals. [place] Housing and Community Investment Dept. Handyworker Program (low income) or Visit http://hcidla.[facility].org/bgj-sfkxsv-ol for more information National Seating and Mobility and/or ; Forever Active www.foreveractivemed.EquityLancer Stay Home Safe www.Stayhomesafe.EquityLancer LIFE ALERT RESPONSE SYSTEM: Gordon Games Lifeline Services 889-791-9717 www. Red 5 Studios Life Alert 017-897-3121 www.myDocket.EquityLancer Life Station 799-568-3876 www.Rail Yard.EquityLancer Safe Return 765-764-5413 www.Wibki.or/safereturn Cell Phones for Seniors www.Visualnest MEALS AND FOOD PROGRAMS: [place] Meals on Wheels [phone] [place] Meals on Wheels [phone] [facility] [phone] [place] to the Homebound [phone] [place] to the Homebound [phone] [facility] to the Homebound [phone] [facility] to the Homebound [phone] [facility] Kin Larsen [phone] [facility] [phone] ONE Generation [phone] [facility] [phone] [facility] [phone] Meals on Wheels [phone] For all ages: $6.85/ meal w side. Delivered M-F from 10 am-1pm. Application and payment is done over the phone. Frozen meals available for weekends. Emergency Food [facility] [phone] [facility] Store Keeper [phone] [facility] [phone] [facility] Brown bag lunches [phone] [facility] [phone] MEAL/GROCERY DELIVERY PROGRAMS: [place] [facility] Gourmet Meals [phone]- [facility] [phone]- [facility] Magic Kitchen [phone] Moms Meals [phone] (ask Yang for Discount Select grocery stores may provide delivery. MEDICAL INSURANCE SUPPORT SERVICES: Center for Health Care Rights [phone] Health Insurance Counseling/Advocacy Programs (HICAP)-Must have Medicare. Offers counseling for Medi-Francisco eligibility [phone] Department of Public Store Keeper [phone] www.[facility].ca.gov Medicare 864-667-3246 www.socialsecurity.org Social Security [phone] SENIOR ACTIVITY PROGRAMS: *Contact a local senior center, adult school, recreation facility or community [facility] for education, fitness, recreation, and social programs. Aquatic Therapy and Adapted Exercise programs through [facility] [phone] Encore at [facility] [phone] www.[facility]/encore U- Senior Friends [phone] [place] Senior Programs [phone] www.oasisnet.org Suddenly 65 www.Retsly.EquityLancer SENIOR CENTERS: [facility] [phone] [facility] [phone] [facility] [phone] [facility] [phone] [facility] [phone] [facility] [phone] [facility] [phone] [facility] [phone] [facility] [phone] [facility] [phone] [facility] [phone] The [facility] [phone] [facility] [phone] TRANSPORTATION: Local [facility] may have applications for transportation programs and additional resources. ACCESS Services [phone] Transportation for seniors and disabled persons 7 days a week requiring 254 hr. advance reservation. Must apply and register for program chantell eligible. CITY RIDE [phone] or [phone] Transportation for seniors and persons with ADA card/metro disabled card in the [facility]. M-F only. Must register for services. ONE GENERATION [phone] Serves 65 years + in conjunction with city ride program. Must be registered with both programs. A to B Transport [phone] Provides wheelchair/gurney van service. Adult Medical Transport [phone] Accepts [facility] with prior authorization. Care Van [phone] Provides wheelchair Transport. [facility] Wide Transportation [phone] Provides gurney service Gentle Care [phone] Gurney Transport. [facility] Town Transportation [phone] wheelchair & gurney transport D Transportation [phone] wheelchair & gurney transport Wheeler Non-Emergency Transport [phone] wheelchair & gurney transport Independent Living Center [phone] Short Term Transportation primarily for adults with disabilities on social security income. Nominal fee may apply and a reservation is required. [facility] Cab [phone] or [phone] [facility] [phone] [place] [address] Referral Services -[phone] For additional programs & services VETERANS RESOURCES: Submissions for Aid and Attendance should be done directly to Federal VA office locatd at : [address] [facility] [address] X110 National Caregiver Support Line [phone] [place] Siddiqui Veterans Services Field Office [phone] [place] Department of Affairs [phone] Pension Information [phone]
[2022-07-24 16:00] VITALS: BP 120/40
--- NOTE | 2022-07-24 18:30 | NUR ---
RN DISCHARGED NOTES PT DISCHARGED TO [facility] IN STABLE CONDITION. A/O X2-3. ABLE TO MAKE NEEDS KNOWN WITH EPISODE OF CONFUSION AND FORGETFULNESS. ALL BELONGINGS ACCOUNTED FOR AND PT'S DAUGHTER PENNY SIGNED BELONGINGS LIST. IV ACCESS ON RIGHT WRIST G#[address], PT WILL CONTINUE TO RECEIVED IV ABX AT THE ARU. PHOTOS OF SKIN ISSUES TAKEN AND FILED ON PT'S CHART. STAFFORD KEPT IN PLACE AND ACTIVELY DRAINING CLEAR YELLOW URINE OUTPUT. HEALTH TEACHINGS/DISCHARGE INSTRUCTIONS GIVEN TO PT 'S DAUGHTER AND VERBALIZED UNDERSTANDING. REPORT ALSO GIVEN TO ZAIDA TERRELL EARLIER VIA TELEPHONE. EXIT FOLDER HANDED TO EMT'S. PT LEFT UNIT @ [address] [facility] ACCOMPANIED BY 2 EMT'S FROM [facility] AND PT'S DAUGHTER. MD AND CHARGE NURSE AWARE OF DISCHARGE.
== END 2022-07-24 18:45 | DRG 689 ==
LOC: ER 16:43 → TELE 21:46 → MED 22:23
PROVIDERS: ADMIT Nurse Practitioner Acute Care; ATTEND Nurse Practitioner Acute Care
DX: N39.0 Urinary tract infection, site not specified (principal); G93.41 Metabolic encephalopathy; M84.48XA Pathological fracture, other site, initial encounter for fracture; I25.10 Atherosclerotic heart disease of native coronary artery without angina pectoris; S00.83XA Contusion of other part of head, initial encounter; W19.XXXA Unspecified fall, initial encounter; Z20.822 Contact with and (suspected) exposure to COVID-19; Z98.890 Other specified postprocedural states; I10 Essential (primary) hypertension; E78.5 Hyperlipidemia, unspecified; E11.9 Type 2 diabetes mellitus without complications; G20 Parkinson's disease; R29.6 Repeated falls; S00.10XA Contusion of unspecified eyelid and periocular area, initial encounter; W18.30XA Fall on same level, unspecified, initial encounter; Y92.9 Unspecified place or not applicable; M50.33 Other cervical disc degeneration, cervicothoracic region; M48.03 Spinal stenosis, cervicothoracic region; Z79.82 Long term (current) use of aspirin; Z79.84 Long term (current) use of oral hypoglycemic drugs; Z79.899 Other long term (current) drug therapy; Z95.1 Presence of aortocoronary bypass graft; Z87.440 Personal history of urinary (tract) infections; B96.89 Other specified bacterial agents as the cause of diseases classified elsewhere; E87.6 Hypokalemia; T36.8X5A Adverse effect of other systemic antibiotics, initial encounter; K59.00 Constipation, unspecified
CPT/HCPCS: 36415; 70450-TC; 71045-TC; 71111-TC; 71250-TC; 72125-TC; 74018; 80048-TC; 80053-TC; 80061-TC; 80076-TC; 81001; 82962-TC; 83690-TC; 83735-TC; 84100-TC; 85025-TC; 85652-TC; 87040-TC; 87081-TC; 87086-TC; 93307-TC; 97112-TC; 97116-TC; 97530-TC; A4216; C9803; G0378; J0744; J2543; J3475; J7030; J7060

== ENCOUNTER 2023-02-12 12:43 | Inpatient (IN) | payer MEDICARE, OTHER ==
[~2023-02-12] VITALS: Ht 154.9 cm; Wt 64.9 kg
[~2023-02-12 12:43] MED LIST: AMAN100C16 PO; AMLO-212 PO; ASPI-1420 PO; ATOR20TA PO; CALC-15 PO; CARB1TAB39 PO; CARV6.252 PO; FLUC100T8 PO; GABA-532 PO; LOSA50TA39 PO; MAGN400T26 PO; MYRBETRIQ PO; PIPE3.379 IV; PRAM0.5T11 PO; Quetiapine Fumarate PO; SENN-261 PO; SITA50TA PO
--- NOTE | 2023-02-12 13:13 | NUR ---
urine sample collected and sent to lab
[2023-02-12] MEDS ORDERED: ONDANSETRON HCL/PF 4 MG/2 ML VIAL IVP ONE (13:30)
[2023-02-12] MEDS ORDERED: IV NS 0.9% 1,000 ML BAG IV ONE (13:30)
[2023-02-12] MEDS ORDERED: ONDANSETRON HCL/PF 4 MG/2 ML VIAL ONE (14:07)
--- NOTE | 2023-02-12 14:28 | NUR ---
XRAY AT BEDSIDE
--- NOTE | 2023-02-12 14:55 | NUR ---
patient IV infiltrated. removed. Will attempt to establish new IV access
--- NOTE | 2023-02-12 15:15 | NUR ---
patient taken to ct via neftaly
[2023-02-12 15:21] LABS: BILIRUBIN,URINE NEGATIVE (NEGATIVE); COLOR,URINE YELLOW (YELLOW); LEUKOCYTE ESTERASE ,URINE NEGATIVE (NEGATIVE); NITRITE, URINE NEGATIVE (NEGATIVE); PH,URINE 7.5 (5.0-8.0); PROTEIN,URINE 1+ mg/dl (NEGATIVE); UGLUCOSE NEGATIVE (NEGATIVE); UROBILINOGEN,URINE 0.2 EU/dL (0.2)
[2023-02-12 15:59] LABS: BACTERIA,URINE 1+ /HPF (None Seen); MUCUS,URINE Moderate /LPF (None Seen); RBC,URINE 0-2 /HPF (0-2); SQUAMOUS EPITHELIAL CELL,UR 21-50 /HPF (None Seen); WBC,URINE 0-2 /HPF (0-3)
[2023-02-12 16:24] LABS: BASOPHILS % (AUTO) 0.4 % (0.0-2.0); EOSINOPHILS % (AUTO) 2.8 % (0.0-6.0); HEMATOCRIT 37 % (33-45); HEMOGLOBIN 12.3 g/dL (11.5-14.8); LYMPHOCYTES # (AUTO) 1.9 K/uL (0.8-4.8); LYMPHOCYTES % (AUTO) 27.9 % (20.0-44.0); MEAN CORPUSCULAR HGB CONC 33 g/dl (31.0-36.0); MEAN CORPUSCULAR VOLUME 91 fL (82-100); MONOCYTES # (AUTO) 0.6 K/uL (0.1-1.30); MONOCYTES % (AUTO) 8.5 % (2.0-12.0); NEUTROPHILS # (AUTO) 4.2 K/uL (1.8-8.9); NEUTROPHILS % (AUTO) 60.4 % (43.0-81.0); PLATELET COUNT (AUTO) 165 K/uL (150-450); RED BLOOD CELL COUNT(AUTO) 4.04 MIL/uL (4.0-5.2); WHITE BLOOD COUNT (AUTO) 6.9 K/uL (4.3-11.0)
[2023-02-12 16:32] LABS: SERUM AMMONIA 21 umol/L (11-32)
[2023-02-12 16:44] LABS: THYROID STIMULATING HORMONE 1.335 uIU/mL (0.358-3.74)
[2023-02-12 16:57] LABS: CARBON DIOXIDE 25 mmol/L (21-32); CHLORIDE 108 mmol/L (98-107); CREATININE 0.9 mg/dL (0.6-1.3); GLUCOSE 92 mg/dL (74-106); SODIUM SERUM 143 mmol/L (136-145); UREA NITROGEN, BLOOD 30 mg/dL (7-18)
[2023-02-12 17:02] LABS: ALANINE AMINOTRANSFERASE 11 U/L (12-78); ALBUMIN 3.7 g/dL (3.4-5.0); ALKALINE PHOSPHATASE 100 U/L (46-116); ASPARTATE AMINOTRANSFERASE 22 U/L (15-37); BILIRUBIN,DIRECT 0.1 mg/dL (0.0-0.2); BILIRUBIN,TOTAL 0.8 mg/dL (0.2-1.0); TOTAL PROTEIN, SERUM 6.8 g/dL (6.4-8.2)
--- NOTE | 2023-02-12 18:20 | NUR ---
COVID AND MRSA SWABS COLLECTED AND SENT TO LAB
[2023-02-12] MEDS ORDERED: MAG HYDROX/AL HYDROX/SIMETH 30 ML UDC PO PRN (18:30)
[2023-02-12] MEDS ORDERED: ONDANSETRON HCL/PF 4 MG/2 ML VIAL IVP PRN (18:30)
[2023-02-12] MEDS ORDERED: Z GUARD REMEDY 4 OZ OINT TP PRN (18:30)
[2023-02-12] MEDS ORDERED: MAGNESIUM HYDROXIDE 30 ML UDC PO PRN (18:30)
[2023-02-12] MEDS ORDERED: ACETAMINOPHEN 325 MG TABLET PO PRN (18:30)
--- NOTE | 2023-02-12 19:05 | NUR ---
BED GIVEN 310-2 AT CHANGE OF SHIFT AND WHEN COVID IS RESULTED.
[2023-02-12 20:00] VITALS: BP 142/71
--- NOTE | 2023-02-12 20:10 | NUR ---
RN NOTES; RECEIVED PT FROM ER IN RM 310-2 AWAKED AOX2 MOROCCAN,BELGIAN SPEAKING DAUGHTER AT BEDSIDE TRANSLATING,ON RM AIR MIMI WELL SATING 97.4%,NO SIGN SOB/DISTRESS NOTED,NO COMPLAIN OF PAIN/DISCOMFORT AT THIS TIME,IV ACCESS ON L HAND 18G,PATENT AND INTACT,INITIAL ASSESSMENT,BELONGING DONE,SAFETY MEASURE IN PLACE,CALL LIGHT WITHIN REACH,WILL CONTINUE TO MONITOR.
--- NOTE | 2023-02-12 20:24 | NUR ---
REPORT GIVEN TO LEILA ArceoW RN FOR MARTY
--- NOTE | 2023-02-12 20:39 | NUR ---
PT TRANSFERRING TO [facility] VIA HOSPITAL PROTOCOL. VSS. ALL BELONGINGS WITH PT.
[2023-02-12] MEDS: ATORVASTATIN 10 MG TABLET PO SCH (21:42)
[2023-02-12] MEDS: CARVEDILOL 6.25 MG TABLET PO SCH (21:42)
[2023-02-12] MEDS: ENOXAPARIN SODIUM 30 MG/0.3 ML DISP.SYRIN SQ SCH (21:43)
[2023-02-12] MEDS: IV NS 0.9% 1,000 ML IV PRN (21:57)
--- NOTE | 2023-02-13 06:16 | NUR ---
RN CLOSING NOTE; PATIENT IN BED AWAKED AOX2 LUXEMBOURGER,BENGALI SPEAKING,ON RM AIR MIMI WELL SATING 97%,NO SIGN SOB/DISTRESS NOTED,NO COMPLAIN OF PAIN/DISCOMFORT DURING SHIFT,DUE MEDS GIVEN ORDER,ALL NEEDS ATTENDED,IV ACCESS ON L HAND 18G WITH NS 75ML/HR INFUSING WELL,SAFETY MEASURE IN PLACE,CALL LIGHT WITHIN REACH,WILL ENDORSED TO NEXT SHIFT.
[2023-02-13 06:41] LABS: BASOPHILS % (AUTO) 0.5 % (0.0-2.0); EOSINOPHILS % (AUTO) 3.4 % (0.0-6.0); HEMATOCRIT 35 % (33-45); HEMOGLOBIN 11.4 g/dL (11.5-14.8); LYMPHOCYTES # (AUTO) 1.6 K/uL (0.8-4.8); LYMPHOCYTES % (AUTO) 25.1 % (20.0-44.0); MEAN CORPUSCULAR HGB CONC 33 g/dl (31.0-36.0); MEAN CORPUSCULAR VOLUME 92 fL (82-100); MONOCYTES # (AUTO) 0.5 K/uL (0.1-1.30); NEUTROPHILS # (AUTO) 3.9 K/uL (1.8-8.9); PLATELET COUNT (AUTO) 152 K/uL (150-450); RED BLOOD CELL COUNT(AUTO) 3.74 MIL/uL (4.0-5.2); WHITE BLOOD COUNT (AUTO) 6.2 K/uL (4.3-11.0)
[2023-02-13 07:00] VITALS: BP 120/63
[2023-02-13 07:05] LABS: CALCIUM, SERUM 8.9 mg/dL (8.5-10.1); CARBON DIOXIDE 24 mmol/L (21-32); CHLORIDE 111 mmol/L (98-107); CREATININE 0.9 mg/dL (0.6-1.3); GLUCOSE 100 mg/dL (74-106); MAGNESIUM 1.7 mg/dL (1.8-2.4); PHOSPHORUS 3.8 mg/dL (2.5-4.9); POTASSIUM 3.8 mmol/L (3.5-5.1); SODIUM SERUM 144 mmol/L (136-145); UREA NITROGEN, BLOOD 25 mg/dL (7-18)
--- NOTE | 2023-02-13 07:21 | NUR ---
MS RN NOTE RECEIVED ON BED ASLEEP. PATIENT IS ALERT AND ORIENTED X 2, WITH DAUGHTER AT BEDSIDE. IN STABLE CONDITION. ABLE TO MAKE NEEDS KNOWN. ON ROOM AIR WITH EQUAL AND UNLABORED BREATHING. WITH IV ACCESS ON THE LEFT HAND G18, WITH NS RUNNING AT 75ML/HR INFUSING WELL. NOTED AVULSED RIGHT GREAT TOE NAIL, AWAITING WOUND CONSULT NURSE FOR ASSESSMENT. NO COMPLAIN OF PAIN OR DISCOMFORT AT THIS TIME. SAFETY MEASURES ENSURED WITH BED IN LOWEST LOCKED POSITION, SIDERAILS RAISED AND CALL LIGHT WITHIN REACH AT ALL TIMES. WILL CONTINUE WITH PLAN OF CARE.
--- NOTE | 2023-02-13 08:55 | NUR ---
MS RN NOTE SEEN BY DR. NOGUEIRA. IN STABLE CONDITION.
[2023-02-13] MEDS ORDERED: CARBIDOPA/LEVA CR 25/100MG 1 TAB.SA PO SCH (09:00)
[2023-02-13] MEDS: SENNOSIDES 8.6 MG TABLET PO SCH (10:04)
[2023-02-13] MEDS: MAGNESIUM OXIDE 400 MG TABLET PO SCH (10:05)
[2023-02-13] MEDS: CALCIUM CARB 250MG /VITAMIN D 1 UDTAB PO SCH (10:05)
[2023-02-13] MEDS: AMANTADINE HCL 100 MG CAPSULE PO SCH (10:06)
[2023-02-13] MEDS: GABAPENTIN 100 MG CAPSULE PO SCH ×2 (10:06→17:41)
[2023-02-13] MEDS: AMLODIPINE BESYLATE 5 MG TABLET PO SCH (10:06)
[2023-02-13] MEDS: CARVEDILOL 6.25 MG TABLET PO SCH ×2 (10:07→21:27)
[2023-02-13] MEDS: ASPIRIN EC 81 MG TABLET.DR PO SCH (10:07)
[2023-02-13] MEDS ORDERED: KETO5DRO83 EACHEYE (10:51)
[2023-02-13] MEDS ORDERED: PROP15DR EACHEYE (10:51)
[2023-02-13] MEDS ORDERED: ALEN70TA3 PO (10:51)
[2023-02-13] MEDS ORDERED: CARB1TAB21 PO (10:51)
[2023-02-13] MEDS ORDERED: CHOL100043 PO (10:51)
[2023-02-13] MEDS ORDERED: CALC500T52 PO (10:51)
[2023-02-13] MEDS ORDERED: Magnesium 1GM/D5W 100ML PREMIX 100 ML IV SCH (11:00)
[2023-02-13] MEDS: IV NS 0.9% 1,000 ML IV PRN (11:15)
--- NOTE | 2023-02-13 11:30 | NUR ---
WOUND CARE CONSULT: PT WAS SEEN THIS AM FOR SKIN ASSESSMENT AND NOTED TO HAVE RT GREAT TOE NAIL LOOSENED WITH DRIED BLOOD AT EDGES, PRESENT ON ADMISSION. DR FAULKNER CALLED ON PT'S DAUGHTER'S REQUEST. IN AGREEMENT WITH PLAN OF CARE.
[2023-02-13] MEDS ORDERED: POLYVINYL ALCOHOL 15 ML BOTTLE EACHEYE PRN (12:00)
[2023-02-13] MEDS: CARBIDOPA/LEVODOPA 25/100 MG 1 UDTAB PO SCH ×2 (13:37→17:41)
[2023-02-13 16:00] VITALS: BP_SYST 66
--- NOTE | 2023-02-13 18:42 | NUR ---
MS RN NOTE PATIENT IS ALERT AND ORIENTED X 2. IN STABLE CONDITION. ABLE TO MAKE NEEDS KNOWN. ON ROOM AIR WITH EQUAL AND UNLABORED BREATHING. WITH IV ACCESS ON THE LEFT HAND G18, WITH NS RUNNING AT 75ML/HR INFUSING WELL. NOTED AVULSED RIGHT GREAT TOE NAIL, FOR POSSIBLE WOUND AVULSION TOMORROW UNDER DR. QUINTERO. NO COMPLAIN OF PAIN OR DISCOMFORT AT THIS TIME. SAFETY MEASURES ENSURED WITH BED IN LOWEST LOCKED POSITION, SIDERAILS RAISED AND CALL LIGHT WITHIN REACH AT ALL TIMES. WILL ENDORSE TO NEXT SHIFT FOR CONTINUITY OF CARE.
--- NOTE | 2023-02-13 19:00 | NUR ---
MS RN OPENING NOTE PATIENT IS IN BED SLEEPING NOTED TO BE BREATHING EVENLY AND NON-LABORED. ALERT AND ORIENTED X 2. ABLE TO MAKE NEEDS KNOWN. ON ROOM AIR TOLERATING WELL NO SOB NOTED. WITH IV ACCESS ON THE LEFT HAND G18, WITH NS RUNNING AT 75ML/HR INFUSING WELL. NOTED AVULSED RIGHT GREAT TOE NAIL, FOR POSSIBLE WOUND AVULSION TOMORROW UNDER DR. QUINTERO. NO COMPLAIN OF PAIN OR DISCOMFORT AT THIS TIME. SAFETY MEASURES ENSURED WITH BED IN LOWEST LOCKED POSITION, SIDE RAILS RAISED AND CALL LIGHT WITHIN REACH AT ALL TIMES.
[2023-02-13 20:57] VITALS: BP 112/64
[2023-02-13] MEDS: ATORVASTATIN 10 MG TABLET PO SCH (21:26)
[2023-02-13] MEDS: ENOXAPARIN SODIUM 30 MG/0.3 ML DISP.SYRIN SQ SCH (21:28)
[2023-02-14] MEDS: IV NS 0.9% 1,000 ML IV PRN ×2 (04:27→21:49)
--- NOTE | 2023-02-14 06:31 | NUR ---
MS RN CLOSING NOTE PATIENT IS IN BED SLEEPING NOTED TO BE BREATHING EVENLY AND NON-LABORED. ALERT AND ORIENTED X 2. ABLE TO MAKE NEEDS KNOWN. ON ROOM AIR TOLERATING WELL NO SOB NOTED. WITH IV ACCESS ON THE LEFT HAND G18 NOTED TO BE PATENT AND INTACT, INFUSING NS 0.9% @ 75ML/HR. NO COMPLAIN OF PAIN OR DISCOMFORT AT THIS TIME. ALL DUE MEDICATION GIVEN. ALL NEEDS ARE MET. MADE SURE PATIENT IS CLEAN AND COMFORTABLE THROUGH OUT THE NIGHT. REPOSITIONED PATIENT Q2H THROUGH OUT THE NIGHT. SAFETY MEASURES ENSURED WITH BED IN LOWEST LOCKED POSITION, SIDE RAILS RAISED AND CALL LIGHT WITHIN REACH AT ALL TIMES. WILL ENDORSE TO NEXT SHIFT NURSE FOR CONTINUITY OF CARE.
[2023-02-14 06:34] LABS: BASOPHILS % (AUTO) 0.4 % (0.0-2.0); EOSINOPHILS % (AUTO) 4.7 % (0.0-6.0); HEMATOCRIT 38 % (33-45); HEMOGLOBIN 12.4 g/dL (11.5-14.8); LYMPHOCYTES # (AUTO) 1.8 K/uL (0.8-4.8); LYMPHOCYTES % (AUTO) 31.8 % (20.0-44.0); MEAN CORPUSCULAR HGB CONC 33 g/dl (31.0-36.0); MEAN CORPUSCULAR VOLUME 92 fL (82-100); MONOCYTES # (AUTO) 0.5 K/uL (0.1-1.30); MONOCYTES % (AUTO) 8.7 % (2.0-12.0); NEUTROPHILS # (AUTO) 3.1 K/uL (1.8-8.9); NEUTROPHILS % (AUTO) 54.4 % (43.0-81.0); PLATELET COUNT (AUTO) 142 K/uL (150-450); RED BLOOD CELL COUNT(AUTO) 4.09 MIL/uL (4.0-5.2); WHITE BLOOD COUNT (AUTO) 5.6 K/uL (4.3-11.0)
[2023-02-14 06:46] LABS: CALCIUM, SERUM 8.7 mg/dL (8.5-10.1); CARBON DIOXIDE 24 mmol/L (21-32); CHLORIDE 109 mmol/L (98-107); CREATININE 0.8 mg/dL (0.6-1.3); GLUCOSE 124 mg/dL (74-106); MAGNESIUM 1.8 mg/dL (1.8-2.4); POTASSIUM 4.2 mmol/L (3.5-5.1); SODIUM SERUM 142 mmol/L (136-145); UREA NITROGEN, BLOOD 28 mg/dL (7-18)
[2023-02-14 07:00] VITALS: BP 130/45
--- NOTE | 2023-02-14 07:33 | NUR ---
MS RN OPENING NOTE Received pt in bed, awake. A/O x 2, Haitian speaker, able to make needs known. On room air, tolerating well. IV access in the left hand #18g with ongoing NS at 75ml/hr, infusing well. Safety measures in place: bed locked and in lowest position, side rails up x 3, call light and tray table within easy reach. Will continue to monitor.
[2023-02-14] MEDS: AMLODIPINE BESYLATE 5 MG TABLET PO SCH (09:00)
[2023-02-14] MEDS: CARVEDILOL 6.25 MG TABLET PO SCH ×4 (09:00→21:45)
[2023-02-14] MEDS: CARBIDOPA/LEVODOPA 25/100 MG 1 UDTAB PO SCH ×3 (09:05→17:22)
[2023-02-14] MEDS: SENNOSIDES 8.6 MG TABLET PO SCH (09:05)
[2023-02-14] MEDS: MAGNESIUM OXIDE 400 MG TABLET PO SCH (09:05)
[2023-02-14] MEDS: AMANTADINE HCL 100 MG CAPSULE PO SCH (09:05)
[2023-02-14] MEDS: CALCIUM CARB 250MG /VITAMIN D 1 UDTAB PO SCH (09:05)
[2023-02-14] MEDS: ASPIRIN EC 81 MG TABLET.DR PO SCH (09:06)
[2023-02-14] MEDS: GABAPENTIN 100 MG CAPSULE PO SCH ×2 (09:06→17:22)
--- NOTE | 2023-02-14 15:35 | NUR ---
RN NOTE Pt s/p right great toe nail avulsion today. Daughter at bedside. Pt tolerated the procedure well. Will continue to monitor.
[2023-02-14 16:00] VITALS: BP 135/53
--- NOTE | 2023-02-14 19:06 | NUR ---
MS RN CLOSING NOTE Pt resting in bed. A/O x 2, Jordanian speaker, able to make needs known. On room air, tolerating well. IV access in the left hand #18g with ongoing NS at 75ml/hr, infusing well. Needs attended. Pt s/p right great toe avulsion today. Safety measures in place: bed locked and in lowest position, side rails up x 3, call light and tray table within easy reach. Will endorse allen to acting professor.
[2023-02-14 20:00] VITALS: BP 115/61
--- NOTE | 2023-02-14 20:40 | NUR ---
MS RN OPENING NOTE PATIENT IS RESTING IN BED WITH HOB ELEVATED TO 30 DEGREE. SHE IS ALERT AND ORIENTED, AO X 2 WITH SOME EPISODES OF CONFUSION. SHE IS [place] TOME[place] SPEAKER, BUT UNDERSTAND SIMPLE MALTESE. PT IS ABLE TO MAKE HER NEEDS KNOWN. SHE IS ON 2 LPM OF OXYGEN VIA NC, TOLERATED WELL. NO S/S OF DISTRESS OR SOB. IV ACCESS IS AT HER L HAND, #18G, INFUSING NS @ 75 ML/HR. IV SITE IS PATENT AND INTACT. PT'S R GREAT TOE DRESSING IS CLEAN AND INTACT. PT DENIES OF HAVING PAIN AT THIS MOMENT. SAFETY MEASURES ARE IN PLACED: BED IN LOWEST AND LOCKED POSITION; SIDE RAILS UP X 3; CALL LIGHT AND TABLE ARE WITHIN REACH. WILL CONTINUE MONITORING THE PT AND PROVIDE THE CARE PT NEEDS.
--- NOTE | 2023-02-14 21:14 | NUR ---
MS CERDA NOTE COREG 12.5 MG DUE AT 2100 WAS HELD DUE TO PT'S DBP IS 53. PT'S BP IS 123/53, HR IS 68. Addendum: 02/14/23 at 214 by DAIJA DORSEY RN RECHECKED PT'S BP MANUALLY, HER BP IS 110/47. HR IS 68. MEDICATION COREG WAS HELD DUE TO LOW DBP.
[2023-02-14] MEDS: ATORVASTATIN 10 MG TABLET PO SCH (21:16)
[2023-02-14] MEDS: ENOXAPARIN SODIUM 30 MG/0.3 ML DISP.SYRIN SQ SCH (21:17)
--- NOTE | 2023-02-14 21:43 | NUR ---
MS RN NOTE RECHECKED PT'S BP MANUALLY. HER BP IS 110/47. HR IS 68. HELD PT'S COREG 12.5 MG DUE AT 2100. CHARGE NURSE, SHRUTHI, NOTIFIED.
--- NOTE | 2023-02-15 05:41 | NUR ---
MS RN NOTE PT IS UNDER RESPIRATORY DISTRESS WITH 2 LPM O2 VIA NC. CALLED RT. INCREASED O2 TO 6 LPM VIA NC. O2 SAT IS 98%. BREATH SOUNDS ARE WHEEZING ON THE TOP OF THE LUNGS BILATERAL. NOTIFIED MD TO GET ORDER FOR BREATHING TX.
[2023-02-15] MEDS ORDERED: IPRATROPIUM NEB FS 0.5 MG/2.5 ML AMPUL.NEB NEB PRN (06:30)
[2023-02-15] MEDS ORDERED: ALBUTEROL FS 2.5 MG/3 ML VIAL.NEB NEB PRN (06:30)
--- NOTE | 2023-02-15 06:47 | NUR ---
MS RN CLOSING NOTE PATIENT IS RESTING IN BED WITH HOB ELEVATED TO 45 DEGREE. SHE IS ALERT AND ORIENTED, AO X 2 WITH SOME EPISODES OF CONFUSION. PT IS ABLE TO MAKE HER NEEDS KNOWN. SHE IS ON 3 LPM OF OXYGEN VIA NC, TOLERATED WELL. NO S/S OF DISTRESS OR SOB. PT'S BREATH SOUND IS WHEEZING, ORDERED PRN BREATHING TX FOR THIS PT. IV ACCESS IS AT HER L HAND, #18G, SL. IV SITE IS PATENT AND INTACT. PT'S R GREAT TOE DRESSING IS CLEAN AND INTACT. PT DENIES OF HAVING PAIN AT THIS MOMENT. SAFETY MEASURES ARE IN PLACED: BED IN LOWEST AND LOCKED POSITION; SIDE RAILS UP X 3; CALL LIGHT AND TABLE ARE WITHIN REACH. WILL ENDORSE NEXT SHIFT NURSE FOR CONTINUING PT CARE.
[2023-02-15 07:00] VITALS: BP 164/68
--- NOTE | 2023-02-15 07:40 | NUR ---
ELECTRIC SWITCH TESTER Opening Note Patient in bed, HOB elevated, awake, A/O x2, on O2 3L via NC, wheezing elevated when talking, able to make needs known. IV access at Left hand #18G, SL. Great toe dressing cleaned. Safety measure in place, bed in low, locked, side rails up x3, call light at reach. Will continue to monitor patient.
[2023-02-15] MEDS: AMLODIPINE BESYLATE 5 MG TABLET PO SCH (08:57)
[2023-02-15] MEDS: AMANTADINE HCL 100 MG CAPSULE PO SCH (08:58)
[2023-02-15] MEDS: MAGNESIUM OXIDE 400 MG TABLET PO SCH (08:58)
[2023-02-15] MEDS: CARBIDOPA/LEVODOPA 25/100 MG 1 UDTAB PO SCH ×3 (08:58→16:51)
[2023-02-15] MEDS: CALCIUM CARB 250MG /VITAMIN D 1 UDTAB PO SCH (08:58)
[2023-02-15] MEDS: GABAPENTIN 100 MG CAPSULE PO SCH ×2 (08:59→16:51)
[2023-02-15] MEDS: ASPIRIN EC 81 MG TABLET.DR PO SCH (08:59)
[2023-02-15] MEDS: CARVEDILOL 6.25 MG TABLET PO SCH ×2 (08:59→20:33)
[2023-02-15] MEDS: SENNOSIDES 8.6 MG TABLET PO SCH (08:59)
[2023-02-15 09:06] LABS: BASOPHILS % (AUTO) 0.4 % (0.0-2.0); EOSINOPHILS % (AUTO) 1.9 % (0.0-6.0); HEMATOCRIT 42 % (33-45); HEMOGLOBIN 13.5 g/dL (11.5-14.8); LYMPHOCYTES # (AUTO) 1.2 K/uL (0.8-4.8); LYMPHOCYTES % (AUTO) 13.5 % (20.0-44.0); MEAN CORPUSCULAR HGB CONC 32 g/dl (31.0-36.0); MEAN CORPUSCULAR VOLUME 93 fL (82-100); MONOCYTES # (AUTO) 0.5 K/uL (0.1-1.30); MONOCYTES % (AUTO) 5.3 % (2.0-12.0); NEUTROPHILS # (AUTO) 6.8 K/uL (1.8-8.9); NEUTROPHILS % (AUTO) 78.9 % (43.0-81.0); PLATELET COUNT (AUTO) 157 K/uL (150-450); RED BLOOD CELL COUNT(AUTO) 4.52 MIL/uL (4.0-5.2); WHITE BLOOD COUNT (AUTO) 8.6 K/uL (4.3-11.0)
[2023-02-15 09:22] LABS: CREATININE 0.8 mg/dL (0.6-1.3); POTASSIUM 3.7 mmol/L (3.5-5.1)
[2023-02-15] MEDS ORDERED: FUROSEMIDE 20 MG/2 ML VIAL IV SCH (09:30)
[2023-02-15] MEDS ORDERED: CLONIDINE HCL 0.1 MG TABLET PO PRN (10:00)
[2023-02-15 16:00] VITALS: BP 132/52
--- NOTE | 2023-02-15 18:00 | NUR ---
RN NOTE Purewick replaced.
--- NOTE | 2023-02-15 19:00 | NUR ---
RN opening notes Received Pt from am nurse. Pt is sittiing in bed comfortably accompanied by Pt's daughter in law. Pt is alert and orientedX1-2 with episode of confusion. Pt speaks Greenlandic and Urdu and able to make needs known. On 3 L NC. No SOB. No S/S of distress noted. IV site at L hand # 18 is clean, intact and flushes well. Purewick is inplaced and draining yellow urine. Snack is given and provided. safety precautions is maintained. bed at low position, brakes locked, bed alarm is on, side rails upX3, hob elevated, offload and call light is within reach. will continue to monitor.
--- NOTE | 2023-02-15 19:19 | NUR ---
CABLE MAKER Closing Note CABLE MAKER Closing Note Patient in bed, awake with HOB elevated, A/O x2, on O2 3L via NC, no s/s of distress/SOB/pain. Less wheezing breathing sound noted. IV access @ Left hand #18G, SL, in place, patent, no s/s of infiltration/infection. Great toe dressed, intact, cleaned. Daughter @ bedside. Safety measures in placed, bed low, locked, side rails up x3, call light @ reach. Will endorse to the next shift nurse to continue monitoring patient.
[2023-02-15 20:00] VITALS: BP 133/50
[2023-02-15] MEDS: ENOXAPARIN SODIUM 30 MG/0.3 ML DISP.SYRIN SQ SCH (20:35)
--- NOTE | 2023-02-15 20:59 | NUR ---
RN notes Pt is trying to get out the bed several times and trying to remove IV several times and oxygen. Pt is not following direction. Explained risks and benefits. Informed and notify Dr. Prince. ordered seroquel 12.5mg/po/one time. charge nurse is aware and informed. Order carried out.
[2023-02-15] MEDS ORDERED: QUETIAPINE FUMARATE 25 MG TABLET PO ONE (21:00)
--- NOTE | 2023-02-15 21:01 | NUR ---
RN notes Administered seroquel 12.5 mg/po/ one time per MD ordered. safety precautions is maintained. will continue to monitor.
[2023-02-15] MEDS: ATORVASTATIN 10 MG TABLET PO SCH (21:12)
[2023-02-16 06:21] LABS: BASOPHILS % (AUTO) 0.4 % (0.0-2.0); EOSINOPHILS % (AUTO) 5.3 % (0.0-6.0); HEMATOCRIT 37 % (33-45); HEMOGLOBIN 12.4 g/dL (11.5-14.8); LYMPHOCYTES # (AUTO) 1.6 K/uL (0.8-4.8); LYMPHOCYTES % (AUTO) 27.2 % (20.0-44.0); MEAN CORPUSCULAR HGB CONC 33 g/dl (31.0-36.0); MEAN CORPUSCULAR VOLUME 92 fL (82-100); MONOCYTES # (AUTO) 0.5 K/uL (0.1-1.30); MONOCYTES % (AUTO) 8.8 % (2.0-12.0); NEUTROPHILS # (AUTO) 3.3 K/uL (1.8-8.9); NEUTROPHILS % (AUTO) 58.3 % (43.0-81.0); PLATELET COUNT (AUTO) 138 K/uL (150-450); RED BLOOD CELL COUNT(AUTO) 4.09 MIL/uL (4.0-5.2); WHITE BLOOD COUNT (AUTO) 5.7 K/uL (4.3-11.0)
--- NOTE | 2023-02-16 06:40 | NUR ---
RN closing notes Pt is resting in bed comfortably. Pt is alert and orientedX1-2 with episode of confusion. Pt speaks Moldovan and Macedonian and able to make needs known. On 3 L NC. No SOB. No S/S of distress noted. VS is stable. afebrile. Routine meds were given as ordered. IV site at L hand # 18 is clean, intact and flushes well. Purewick is inplaced and draining yellow urine 600ml. Snacks is given and provided. Kept Pt clean, dry and comfortable. safety precautions is maintained. bed at low position, brakes locked, bed alarm is on, side rails upX3, hob elevated, offload and call light is within reach. Will endorse to am nurse for MARTY.
[2023-02-16 06:44] LABS: CALCIUM, SERUM 8.8 mg/dL (8.5-10.1); CARBON DIOXIDE 24 mmol/L (21-32); CHLORIDE 109 mmol/L (98-107); CREATININE 0.7 mg/dL (0.6-1.3); GLUCOSE 110 mg/dL (74-106); POTASSIUM 3.4 mmol/L (3.5-5.1); SODIUM SERUM 142 mmol/L (136-145); UREA NITROGEN, BLOOD 23 mg/dL (7-18)
--- NOTE | 2023-02-16 07:20 | NUR ---
MS RN OPENING NOTE RECEIVED PATIENT ASLEEP IN BED, WITH O2 AT 3 LPM NC, BREATHING EVEN AND UNLABORED, NO S/S OF DISTRESS AND NO SOB NOTED. WITH IV AT LEFT HAND #22 SL, PATENT AND INTACT. WITH DRESSING ON RIGHT GREAT TOENAIL, DRY AND INTACT. FALL AND SAFETY PRECAUTION IN PLACE: BED LOCKED AND AT THE LOWEST POSITION, SIDE RAILS UP X2, CALL LIGHT WITHIN REACH. WILL CONTINUE TO MONITOR FOR MARTY
--- NOTE | 2023-02-16 07:35 | NUR ---
RN NOTE DR NOGUEIRA MADE ROUNDS AND MADE ORDERS. NOTED AND CARRIED OUT ORDERS TO CHANGE OXYGEN SUPPORT TO ROOM AIR AND TO MONITOR O2 SATURATION. WILL CONTINUE TO MONITOR PATIENT.
--- NOTE | 2023-02-16 07:45 | NUR ---
RN NOTES PATIENT STILL LETHARGIC WITH CURRENT 02 SATURATION 96% ON ROOM AIR. WILL CONTINUE TO MONITOR.
[2023-02-16 08:00] VITALS: BP 140/49
[2023-02-16] MEDS: CALCIUM CARB 250MG /VITAMIN D 1 UDTAB PO SCH (08:34)
[2023-02-16] MEDS: SENNOSIDES 8.6 MG TABLET PO SCH (08:34)
[2023-02-16] MEDS: CARBIDOPA/LEVODOPA 25/100 MG 1 UDTAB PO SCH ×2 (08:34→12:34)
[2023-02-16] MEDS: ASPIRIN EC 81 MG TABLET.DR PO SCH (08:34)
[2023-02-16] MEDS: AMANTADINE HCL 100 MG CAPSULE PO SCH (08:34)
[2023-02-16] MEDS: GABAPENTIN 100 MG CAPSULE PO SCH (08:34)
[2023-02-16] MEDS: MAGNESIUM OXIDE 400 MG TABLET PO SCH (08:34)
[2023-02-16 09:00] VITALS: BP 140/49
[2023-02-16] MEDS: CARVEDILOL 6.25 MG TABLET PO SCH (09:00)
[2023-02-16] MEDS: AMLODIPINE BESYLATE 5 MG TABLET PO SCH (09:00)
[2023-02-16] MEDS ORDERED: FURO-145 PO (09:53)
[2023-02-16] MEDS: FUROSEMIDE 20 MG/2 ML VIAL IV SCH ×2 (09:59→10:17)
[2023-02-16] MEDS ORDERED: POTASSIUM CHLORIDE 20 MEQ TAB.PRT.SR PO SCH (10:00)
[2023-02-16] MEDS ORDERED: Z GUARD REMEDY 4 OZ OINT TP PRN (13:00)
--- NOTE | 2023-02-16 14:07 | NUR ---
RN NOTE CALLED [facility] THROUGH [phone], SPOKE WITH ZOEY-RN CHIEF ENGINEER RESEARCH, GAVE REPORT. ALSO INFORMED OF 1500 MIXING PAN TENDER TIME
--- NOTE | 2023-02-16 15:50 | NUR ---
RN DISCHARGED NOTE PATIENT DISCHARGE TO [facility] IN STABLE CONDITION. A/O X 2-3, VIET[place]ESE VIETNAMESE SPEAKING, CAN UNDERSTAND STATELESS. VITAL SIGNS TAKEN, STABLE AND RECORDED. IV ACCESS ON LEFT HAND REMOVED, NO ACTIVE BLEEDING NOTED, DRY DRESSING APPLIED AT SITE. PHOTOS OF SKIN ISSUES TAKEN AND FILED ON HER CHART. PT HAS NO BELONGINGS EXCEPT UPPER AND LOWER DENTURES. ALL BELONGINGS CHECKED AND BELONGINGS LIST SIGNED. HEALTH TEACHING AND DISCHARGE INSTRUCTIONS GIVEN TO PT AND HER DAUGHTER, BOTH VERBALIZED UNDERSTANDING. REPORT GIVEN TO INGRIDI-RN WHEEL PRESS CLERK OF [facility]. PATIENT LEFT UNIT VIA GURNEY AT 1550 ACCOMPANIED BY 2 EMT'S FROM LAST. DAUGHTER VERBALIZE THAT SHE WILL FOLLOW THE AMBULANCE TO THE FACILITY.
[2023-02-18] MEDS ORDERED: ALENDRONATE 70 MG TABLET PO SCH (07:30)
== END 2023-02-16 16:12 | DRG 291 ==
LOC: ER 12:48 → TELE 19:12 → MED 20:30
PROVIDERS: ADMIT Internal Medicine; ATTEND Internal Medicine
DX: I11.0 Hypertensive heart disease with heart failure (principal); E43 Unspecified severe protein-calorie malnutrition; N17.0 Acute kidney failure with tubular necrosis; G93.41 Metabolic encephalopathy; J96.01 Acute respiratory failure with hypoxia; I50.23 Acute on chronic systolic (congestive) heart failure; J98.11 Atelectasis; E86.0 Dehydration; G20 Parkinson's disease; I25.10 Atherosclerotic heart disease of native coronary artery without angina pectoris; Z20.822 Contact with and (suspected) exposure to COVID-19; E78.5 Hyperlipidemia, unspecified; Z95.1 Presence of aortocoronary bypass graft; Z98.890 Other specified postprocedural states; Z79.84 Long term (current) use of oral hypoglycemic drugs; Z79.82 Long term (current) use of aspirin; Z79.899 Other long term (current) drug therapy; E88.09 Other disorders of plasma-protein metabolism, not elsewhere classified; E11.42 Type 2 diabetes mellitus with diabetic polyneuropathy; E11.65 Type 2 diabetes mellitus with hyperglycemia; B35.1 Tinea unguium; L60.1 Onycholysis; L60.2 Onychogryphosis; S91.201A Unspecified open wound of right great toe with damage to nail, initial encounter; W19.XXXA Unspecified fall, initial encounter; Y92.9 Unspecified place or not applicable
CPT/HCPCS: 36415; 70450-TC; 71045-TC; 73630-TC; 80048-TC; 80076-TC; 81001; 82140-TC; 82962-TC; 83735-TC; 84100-TC; 84443-TC; 85025-TC; 85730-TC; 87081-TC; 87086-TC; 97110-TC; 97530-TC; A4223; A6403; C9803; G0378; J1650; J1940; J2405; J3475; J7030